=== PATIENT | male | born 1965 | race American Indian/Alaskan Native ===

== ENCOUNTER 2016-10-02 17:09 | Emergency (ER) | payer SELFPAY ==
--- NOTE | 2016-10-02 17:14 | Emergency Department Report ---
Chief Complaint: Seizure Stated Complaint: SEIZURES Time Seen by Provider: 10/02/16 17:11 - HPI History of Present Illness: PT has a hx of SZ. PT did not take his SZ medication today. PT's sister states she witnessed pt have a sz today at 1630 Pt also has hx of paranoid schizophrenia and bipolar - ROS Review of Systems: unable to obtain - Exam Physical Exam: pt is alert not responsive to verbal stimuli MSE screening note: Focused history and physical exam performed. Due to findings the following was ordered: labs room ED Disposition for MSE Condition: Stable
[2016-10-02] MEDS ORDERED: ATIVAN ONE ×2 (17:15→17:17)
[2016-10-02] MEDS ORDERED: ATIVAN IM ONE (17:17)
[2016-10-02] MEDS ORDERED: KEPPRA 1,000 MG/NS 0.75% 100ML 1,000 MG/100 ML BAG IV ONE ×2 (17:18→17:30)
[2016-10-02] MEDS ORDERED: ATIVAN IV ONE (17:26)
[2016-10-02] MEDS ORDERED: NACL 0.9% 1000 ML 1,000 ML IV ONE (17:40)
[2016-10-02 18:01] LABS: Basophils % (Auto) 0.4 % (0.0-1.8); Eosinophils % (Auto) 0.1 % (0.0-4.3); Hematocrit 39.2 % (35.5-45.6); Mean Corpuscular HGB Conc 33 % (32-34); Mean Corpuscular Hemoglobin 31 pg (28-32); Mean Corpuscular Volume 93 fl (84-94); Platelet Count 186 K/mm3 (140-440); Red Blood Count 4.21 M/mm3 (3.65-5.03); Red Cell Distribution Width 14.3 % (13.2-15.2)
[2016-10-02 18:12] LABS: Alanine Aminotransferase 8 units/L (7-56); Albumin 4.2 g/dL (3.9-5); Albumin/Globulin Ratio 1.6 %; Alkaline Phosphatase 56 units/L (35-129); Blood Urea Nitrogen 16 mg/dL (9-20); Calcium 8.6 mg/dL (8.4-10.2); Carbon Dioxide 14 mmol/L (22-30); Creatine Kinase 1044 units/L (55-170); Glucose 180 mg/dL (75-100); Total Protein 6.9 g/dL (6.3-8.2)
[2016-10-02 18:13] LABS: Anion Gap 32 mmol/L; Chloride 99.5 mmol/L (98-107); Sodium 141 mmol/L (137-145)
--- NOTE | 2016-10-02 18:33 | Cat Scan Report ---
FINAL REPORT EXAM: CT HEAD/BRAIN WO CON HISTORY: seizure TECHNIQUE: CT examination of the head without IV contrast PRIORS: None. FINDINGS: Slight mucosal thickening left maxillary and left ethmoid sinuses.No acute air-fluid level visualized in the included air-filled sinuses. Bone windows demonstrate no acute fracture. The brain is without mass, mass effect, hemorrhage, or acute infarct. There is no extra-axial intracranial bleed, brain bleed, or midline shift. The ventricles and sulci are age-appropriate. IMPRESSION: No acute CVA, intracranial bleed, or brain mass
[2016-10-02 19:28] LABS: Urine Drugs of Abuse Note Disclamer
[2016-10-02 19:47] LABS: Bilirubin,Urine NEG (Negative); Blood,Urine MOD (Negative); Ketones,Urine TR mg/dL (Negative); Leukocyte Esterase,Urine NEG (Negative); Mucus,Urine 2+ /HPF; Nitrite,Urine NEG (Negative); Urobilinogen,Urine < 2.0 mg/dL (<2.0)
--- NOTE | 2016-10-02 20:02 | Emergency Department Report ---
HPI - General Chief Complaint: Seizure Time Seen by Provider: 10/02/16 17:11 - HPI HPI: Patient with history of seizures and had a seizure while out with his sister, driven to the ED actively seizing. Sister stated patient with history of schizophrenia, seizure disorder on Keppra is currently visiting from [place]. Patient has not been compliant with his medication, and the sister does not remember when he took his medications last. Seizure lasted about 2 minutes in the ER room 5, patient received 2 mg Ativan IM and continued to seize for 1 minute, after IV access was established to milligram IV Ativan given. ED Past Medical Hx - Past Medical History Previous Medical History?: Yes Hx Hypertension: No Hx CVA: No Hx Heart Attack/AMI: No Hx Congestive Heart Failure: No Hx Diabetes: No Hx Deep Vein Thrombosis: No Hx Pulmonary Embolism: No Hx GERD: No Hx Liver Disease: No Hx Renal Disease: No Hx of Cancer: No Hx Sickle Cell Disease: No Hx Arthritis: No Hx Headaches / Migraines: No Hx Seizures: Yes Hx Kidney Stones: No Hx Psychiatric Treatment: Yes (bipolar) Hx Asthma: No Hx COPD: No Hx Tuberculosis: No Hx Dementia: No - Surgical History Past Surgical History?: No Hx Coronary Stent: No Hx Open Heart Surgery: No Hx Pacemaker: No Hx Internal Defibrillator: No Hx Cholecystectomy: No Hx Appendectomy: No Hx Breast Surgery: No Additional Surgical History: unknown pt unconscious - Social History Smoking Status: Current Every Day Smoker Substance Use Type: None - Medications Home Medications: Home Medications Medication Instructions Recorded Confirmed Last Taken Type levETIRAcetam [Keppra TAB] 500 mg PO BID #60 tablet 10/03/16 Unknown Rx ED Review of Systems ROS: Stated complaint: SEIZURES Other details as noted in HPI Comment: Unobtainable due to pts medical conditions Physical Exam - Physical Exam Vital Signs: Vital Signs 10/02/16 10/02/16 10/02/16 17:09 17:11 17:21 Temperature Pulse Rate 108 H 113 H 94 H Respiratory 22 23 19 Rate Blood Pressure 144/66 125/52 Blood Pressure [Right] O2 Sat by Pulse 97 95 Oximetry 10/02/16 10/02/16 10/02/16 17:31 17:40 18:05 Temperature Pulse Rate 92 H 94 H 83 Respiratory 17 12 Rate Blood Pressure 125/52 110/60 110/60 Blood Pressure [Right] O2 Sat by Pulse 97 88 96 Oximetry 10/02/16 10/02/16 10/02/16 18:11 18:23 18:27 Temperature 98.6 F 98.5 F Pulse Rate 82 95 H 95 H Respiratory 18 18 20 Rate Blood Pressure 107/59 125/52 Blood Pressure 125/52 [Right] O2 Sat by Pulse 96 98 98 Oximetry 10/02/16 18:41 Temperature Pulse Rate Respiratory 18 Rate Blood Pressure Blood Pressure [Right] O2 Sat by Pulse 98 Oximetry Physical Exam: Vital signs reviewed Gen. Actively seizing Head atraumatic normocephalic Eyes PERR LA EOMI Chest regular rate and rhythm normal S1-S2 lungs clear bilaterally Abdomen soft nondistended Back no point tenderness paravertebral tenderness Neuro actively seizing ED Course Vital Signs 10/02/16 10/02/16 10/02/16 17:09 17:11 17:21 Temperature Pulse Rate 108 H 113 H 94 H Respiratory 22 23 19 Rate Blood Pressure 144/66 125/52 Blood Pressure [Right] O2 Sat by Pulse 97 95 Oximetry 10/02/16 10/02/16 10/02/16 17:31 17:40 18:05 Temperature Pulse Rate 92 H 94 H 83 Respiratory 17 12 Rate Blood Pressure 125/52 110/60 110/60 Blood Pressure [Right] O2 Sat by Pulse 97 88 96 Oximetry 10/02/16 10/02/16 10/02/16 18:11 18:23 18:27 Temperature 98.6 F 98.5 F Pulse Rate 82 95 H 95 H Respiratory 18 18 20 Rate Blood Pressure 107/59 125/52 Blood Pressure 125/52 [Right] O2 Sat by Pulse 96 98 98 Oximetry 10/02/16 18:41 Temperature Pulse Rate Respiratory 18 Rate Blood Pressure Blood Pressure [Right] O2 Sat by Pulse 98 Oximetry - Reevaluation(s) Reevaluation #1: 10/03/16 00:25 Patient is awake and alert, wants to go home. ED Medical Decision Making - Lab Data Result diagrams: 10/02/16 17:38 10/02/16 17:38 Critical care attestation.: If time is entered above; I have spent that time in minutes in the direct care of this critically ill patient, excluding procedure time. ED Disposition Clinical Impression: Seizure Disposition: [id number] TO HOME OR SELFCARE Is pt being admited?: No Does the pt Need Aspirin: No Condition: Stable Instructions: Recurrent Seizures Adult (ED) Prescriptions: levETIRAcetam [Keppra TAB] 500 mg PO BID #60 tablet Referrals: PRIMARY CARE, [Primary Care Provider] - 3-5 Days
[2016-10-03] MEDS ORDERED: TYLENOL ONE (01:56)
[2016-10-03] MEDS: TYLENOL PO ONE ×2 (02:00→02:47)
[2016-10-03 06:31] VITALS: BP 111/64
--- NOTE | 2016-10-03 07:24 | XRay Report ---
AP CHEST: HISTORY: Seizure, evaluate for aspiration AP view of the chest demonstrates a normal mediastinal and cardiac contour with clear lungs and normal bony and soft tissue structures. IMPRESSION: Unremarkable AP chest.
== END 2016-10-03 06:31 | disposition home or self-care (01) ==
LOC: ED 17:09
DX: G40.909 Epilepsy, unspecified, not intractable, without status epilepticus (principal); F31.9 Bipolar disorder, unspecified; F17.200 Nicotine dependence, unspecified, uncomplicated
CPT/HCPCS: 36415; 70450; 71010; 80053; 80307; 81001; 82550; 82962; 85025; 93005; 93010; 96365; 96372; 96375; 99285; J1953; J2060